=== PATIENT | male | born 1935 ===

== ENCOUNTER 2017-09-26 05:20 | Day surgery (SDC) | payer OTHER ==
[~2017-09-26 05:20] MED LIST: CATAFLAN PO; DILANTIN100 MG PO; MYSOLINE250 MG PO; TRAMADOL HCL50 MG PO
== END 2017-09-26 13:45 | disposition home or self-care (01) ==
LOC: CIR.AMB 05:20
DX: M65.842 Other synovitis and tenosynovitis, left hand (principal)